=== PATIENT | female | born 1995 | race Caucasian/White ===

== ENCOUNTER 2023-10-29 17:18 | Observation (INO) ==
--- NOTE | 2023-10-29 17:37 | Emergency Department Note ---
Impression & Plan Cholecystitis, Abdominal pain, Leukocytosis, UTI (urinary tract infection) ED Provider Note NAME: DORYS ASCENCIO AGE: 28 SEX: F : 1995 ARRIVES VIA: Walk-In INFORMANT: Patient ED PROVIDER(S): Jean Claude Luna DO CHIEF COMPLAINT: abdominal pain HPI: Patient is a 28-year-old female who presents ER for epigastric abdominal pain which started earlier today. Associated with nausea but no vomiting. Started around 8-9 30. She notes it is worse with pushing. Does radiate to the upper quadrant. She did deliver 2 months ago and had a D&C performed that she had some retained products last Tuesday. Denies any other vaginal bleeding vaginal discharge. No dysuria, urgency, or frequency. No other exacerbating or remitting factors. Symptoms are worse with eating. No chest pain or shortness of breath. ADDITIONAL HISTORY OBTAINED: Per HPI Chronic Medical/Social Conditions Affecting Care: Per HPI PAST MEDICAL HISTORY:See Below PAST SURGICAL HISTORY:See Below FAMILY HISTORY:See Below SOCIAL HISTORY:See Below HOME MEDICATIONS:See Below ALLERGIES:See Below VITALS:See Below PHYSICAL EXAMINATION: GENERAL: Sitting up in bed, alert, well appearing, well nourished, no distress, non-toxic EYE EXAM: normal conjunctiva. PERRL and EOM's grossly intact. OROPHARYNX: no exudate, no erythema, lips, buccal mucosa, and tongue normal and mucous membranes are moist NECK: supple, no nuchal rigidity, no adenopathy, non-tender LUNGS: Clear to auscultation. Normal chest wall mechanics HEART: no murmurs, S1 normal and S2 normal ABDOMEN: abdomen soft, TTP in epigastric region, normo-active bowel sounds, no masses, no rebound or guarding. UPPER EXTREMITIES: upper extremities are grossly normal. LOWER EXTREMITIES: No pitting edema. NEURO EXAM: Normal sensorium, cranial nerves II-XII grossly intact, normal speech, no gross weakness of arms, no gross weakness of legs. MEDICAL DECISION MAKING: Patient is a 28-year-old female who presents ER for the above-stated complaint. IV was established blood work was obtained. Labs show leukocytosis of 13.7. No significant anemia. INR unremarkable. BMP along with LFTs bilirubin and lipase was unremarkable. UA does appear to be consistent with UTI with nitrates leuks and whites and bacteria although small amount of epithelials present. CT abdomen pelvis is consistent with acute cholecystitis. This was discussed with general surgery been who recommended admission to the hospitalist. I discussed the case with the hospitalist and they recommended admission to general surgery. Both services discussed the case and patient was admitted to general surgery. Patient was given morphine, Zosyn, Zofran and fluids. Consults/Care Managements Discussions: Per MDM Triage Nursing notes reviewed. Limited review of prior medical records performed Vital Signs: reviewed and remarkable for no significant abnormalities Differential diagnosis: Differential diagnoses includes but is not limited to gastritis, peptic ulcer disease, GERD, gallbladder disease, pancreatitis, small bowel obstruction, appendicitis, diverticulitis, hernia, urinary tract infection, torsion, /ectopic (if female), perforation, trauma, infectious. ER treatment provided: See below Diagnostics interpreted by me include EKG and cardiac monitoring as listed below: -Cardiac Monitoring: An order was placed for continuous cardiac monitoring. The monitor shows a rate of 80 with sinus rhythm. -ECG: none -Laboratory studies:Interpreted by me as stated above in MDM and shown below. Imaging studies: Xrays: As interpreted by me:none CTs show: CT abdomen pelvis per my preliminary interpretation showed no obvious bowel obstruction CT abdomen pelvis per radiology shows acute cholecystitis Procedures:none Critical Care: None Past Med/Surg History Problem List (Updated 10/29/23 @ 21:05 by Jean Claude Luna DO) UTI (urinary tract infection) (Acute) Leukocytosis (Acute) Abdominal pain (Acute) Cholecystitis (Acute) Social History Smoking Status: Never smoker Preferred Language: Vietnamese Feels Safe at Home: Yes Allergies Allergies Allergy/AdvReac Type Severity Reaction Status Date / Time adhesive Allergy Intermediate ITCHY HIVES Verified 10/29/23 18:12 latex Allergy Intermediate ITCHY HIVES Verified 10/29/23 18:12 Home Meds Home Medications Medication Instructions Recorded Confirmed cholecalciferol (vitamin D3) 25 0 mcg PO DAILY 10/29/23 10/29/23 mcg (1,000 unit) capsule (Vitamin D3) famotidine 20 mg tablet 20 mg PO DAILY 10/29/23 10/29/23 fenugreek seed 610 mg capsule 0 mg PO DAILY 10/29/23 10/29/23 vit no.95-ferrous 1 tab PO DAILY 10/29/23 10/29/23 fumarate 28 mg-folic acid 800 mcg tablet () Results & Data (ED) Vital Signs Vital Signs - 24 hr 10/29/23 17:23 10/29/23 18:26 10/29/23 18:26 Temperature 36.8 C Temperature Source Temporal Artery Scan Pulse Rate 79 Pulse Rate [Apical] 71 Respiratory Rate 19 13 Blood Pressure 144/86 H Blood Pressure [Right Arm] 140/88 Blood Pressure Mean 105 Blood Pressure Mean [Right Arm] 105 Pulse Oximetry 100 98 Oxygen Delivery Method Room Air Room Air Room Air Sepsis Recent Fever Within 48 Hours No Sepsis New/Unexplained Change in Mental Status N/A Sepsis Action Taken by Nursing No Action Required 10/29/23 18:29 10/29/23 18:57 10/29/23 20:00 Temperature Temperature Source Pulse Rate 74 Pulse Rate [Apical] 69 72 Respiratory Rate 12 16 Blood Pressure Blood Pressure [Right Arm] 137/90 122/84 Blood Pressure Mean Blood Pressure Mean [Right Arm] 105 96 Pulse Oximetry 99 98 Oxygen Delivery Method Room Air Room Air Sepsis Recent Fever Within 48 Hours Sepsis New/Unexplained Change in Mental Status Sepsis Action Taken by Nursing Laboratory Data 10/29/23 17:59 10/29/23 17:59 Lab Results 10/29/23 10/29/23 Range/Units 17:44 17:59 WBC 13.75 H (4.8-10.8) K/ul RBC 5.10 (4.20-5.40) M/uL Hgb 13.4 (12.0-16.0) g/dl Hct 39.7 (37.0-47.0) % MCV 77.8 L (80.0-100.0) fL MCH 26.3 (25.0-34.0) pg MCHC 33.8 (32.0-36.0) g/dL RDW Std Deviation 35.4 L (36.4-46.3) fL RDW Coeff of Tim 12.5 (11.5-14.5) % Plt Count 341 (130-400) K/uL MPV 10.2 (9.4-12.4) fL Immature Gran % (Auto) 0.4 % Neut % (Auto) 69.9 % Lymph % (Auto) 21.5 % [place] % (Auto) 6.5 % Eos % (Auto) 1.3 % Baso % (Auto) 0.4 % Neut # (Auto) 9.62 H (1.40-6.50) K/uL Lymph # (Auto) 2.95 (1.20-3.40) K/uL [place] # (Auto) 0.89 H (0.11-0.59) K/uL Eos # (Auto) 0.18 (0.00-0.50) K/uL Baso # (Auto) 0.06 (0.00-0.20) K/uL Immature Gran # (Auto) 0.05 (0.01-0.20) K/uL PT 10.2 (9.0-12.0) Seconds INR 0.9 (0.9-1.1) Sodium 139 (136-145) mmol/L Potassium 4.0 (3.5-5.1) mmol/L Chloride 106 (98-107) mmol/L Carbon Dioxide 25 (21-32) mmol/L Anion Gap 8 (3-11) BUN 21 (6-23) mg/dl Creatinine 0.93 (0.6-1.2) mg/dl Est Cr Clr Drug Dosing 102.2 ml/min Est GFR ( Amer) 96.3 ml/min Est GFR (Non-Af Amer) 83.1 ml/min BUN/Creatinine Ratio 22.6 H (10-20) Glucose 83 (70-99(Fasting)) mg/dl Calcium 9.8 (8.6-10.3) mg/dl Total Bilirubin 0.4 (0.2-1.0) mg/dl AST 24 (13-39) U/L ALT 36 (7-52) U/L Alkaline Phosphatase 117 H (34-104) U/L Total Protein 7.4 (6.0-8.3) gm/dl Albumin 4.6 (3.4-5.0) gm/dl Globulin 2.8 (2.5-4.0) gm/dl Albumin/Globulin Ratio 1.6 (0.9-2) Lipase 47 (11-82) U/L Urine Color Yellow Urine Appearance Cloudy A (Clear) Urine pH 6.0 (4.5-7.5) Ur Specific [place] 1.019 (1.000-1.030) Urine Protein Negative (Negative) Urine Glucose (UA) Negative (Negative) Urine Ketones Negative (Negative) Urine Blood Negative (Negative) Urine Nitrite Positive A (Negative) Urine Bilirubin Negative (Negative) Urine Urobilinogen Negative (Negative) Ur Leukocyte Esterase 2+ H (Negative) Urine WBC (Auto) 11-20 H (0-5) /hpf Urine RBC (Auto) 0-2 (0-2) /hpf U Hyaline Cast (Auto) 0-2 (0-2) /lpf U Epithel Cells (Auto) 3-5 H (0-2) /hpf Urine Bacteria (Auto) 4+ H (None Seen) Administered Medications Sodium Chloride (Nss) 1,000 mls @ 100 mls/hr IV .Q10H JOSE RAMON Stop: 11/28/23 19:44 Last Admin: 10/29/23 20:10 Dose: 100 mls/hr Documented By: MECHELLE Discontinued Medications Al Hydrox/Mg Hydrox/Simethicone (Aluminum/Magnesium Susp 30 Ml Udc) 30 ml PO NOW STA Stop: 10/29/23 17:35 Last Admin: 10/29/23 17:48 Dose: 30 ml Documented By: LAWRENCE Piperacillin Sod/Tazobactam Sod (Zosyn) 4.5 gm in 100 mls @ 200 mls/hr IV NOW ONE Stop: 10/29/23 19:31 Last Infusion: 10/29/23 19:59 Dose: Infused Documented By: Admin: 10/29/23 19:26 Dose: 200 mls/hr Documented By: MECHELLE Ioversol (Optiray 320 100ml) 88 ml IV ONCE ONE Stop: 10/29/23 18:18 Last Admin: 10/29/23 18:17 Dose: 88 ml Documented By: ARMANDO Morphine Sulfate (Morphine Sulfate 4 Mg/Ml 1 Ml Carp\\Vial) 4 mg IV NOW STA Stop: 10/29/23 19:03 Last Admin: 10/29/23 19:14 Dose: Not Given Documented By: MECHELLE Ondansetron HCl (Ondansetron Inj 2 Mg/Ml 2 Ml Vial) 4 mg IV NOW STA Stop: 10/29/23 17:35 Last Admin: 10/29/23 17:48 Dose: 4 mg Documented By: LAWRENCE Imaging Data Radiologist's Impression: Abdomen/Pelvis CT 10/29/23 17:[address] WITH IV CONTRAST CT DOSE: 1367.47 mGy.cm HISTORY: epigastric abd pain TECHNIQUE: Multiaxial CT images of the abdomen and pelvis were performed following the use of intravenous contrast. A dose lowering technique was utilized adhering to the principles of ALARA. COMPARISON STUDY: None. FINDINGS: The lung bases are clear. No pneumoperitoneum. No pneumatosis. No acute fractures identified. The liver, spleen, adrenal glands, and pancreas are unremarkable. The main portal vein is patent. Normal caliber abdominal aorta. No retroperitoneal lymphadenopathy. The kidneys enhance normally. There are few punctate bilateral renal calculi. No ureteral calculi. No hydronephrosis. The gallbladder is mildly distended and contains a few punctate gallstones. There is a small amount of pericholecystic fluid. Therefore, these findings are suspicious for an acute cholecystitis. Normal caliber common bile duct. The bladder, uterus, and ovaries are unremarkable. No pelvic free fluid. No pelvic lymphadenopathy. No bowel wall thickening or obstruction. Normal appendix. IMPRESSION: 1. The gallbladder is mildly distended and contains a few punctate gallstones. There is a small amount of pericholecystic fluid. Therefore, these findings are suspicious for an acute cholecystitis. Underlying hepatocellular disease could also result in this appearance. Surgical consultation recommended. 2. No bowel wall thickening or obstruction. 3. Normal appendix. 4. Bilateral nephrolithiasis. No ureteral stones. No hydronephrosis. ACT 112: Negative or not required by law. Electronically signed by: Tj Dickinson M.D. 10/29/2023 6:53 PM Discharge Plan Visit Data Chief Complaint: Abdominal Pain Stated Complaint: SHARP ABD PAIN ED Provider: Jean Claude Luna Discharge Problem: Cholecystitis, Abdominal pain, Leukocytosis, UTI (urinary tract infection) Discharge Instructions Interventions: ED Discharge Assessment Last Done: 10/29/23 20:48 Forms Stand Alone Forms: My CoNarrative Prescriptions Prescriptions: No Action famotidine 20 mg Tablet 20 mg PO DAILY cholecalciferol (vitamin D3) [Vitamin D3] 25 mcg (1,000 unit) Capsule 0 mcg PO DAILY Rx Instructions: PT UNSURE OF STRENGTH PNV cmb#95-ferrous fumarate-FA [] 28 mg iron- 800 mcg Tablet 1 tab PO DAILY fenugreek seed 610 mg Capsule 0 mg PO DAILY Rx Instructions: PER PT "DAILY DOSE PER PKG". PT UNSURE OF STRENGTH Referrals Referrals: PCP,NO [Primary Care Provider] - Discharge Problem: Abdominal pain Qualifiers: Abdominal location: unspecified location Qualified Code(s): R10.9 - Unspecified abdominal pain Leukocytosis Qualifiers: Leukocytosis type: unspecified Qualified Code(s): D72.829 - Elevated white blood cell count, unspecified UTI (urinary tract infection) Qualifiers: Urinary tract infection type: acute cystitis Hematuria presence: with hematuria Qualified Code(s): N30.01 - Acute cystitis with hematuria
[2023-10-29] MEDS: ONDANSETRON INJ 2 MG/ML 2 ML VIAL IV STA (17:48)
[2023-10-29] MEDS: ALUMINUM/MAGNESIUM SUSP 30 ML UDC PO STA (17:48)
[2023-10-29 18:04] LABS: Appearance Urine Cloudy (Clear); Bacteria Urine Automated 4+ (None Seen); Bilirubin Urine Negative (Negative); Blood Urine Negative (Negative); Cast Urine Automated 0-2 /lpf (0-2); Color Urine Yellow; Glucose Urine UA Negative (Negative); Ketones Urine Negative (Negative); Leukocyte Esterase Urine 2+ (Negative); Nitrite Urine Positive (Negative); Protein Urine Negative (Negative); RBC Urine Automated 0-2 /hpf (0-2); Specific Gravity Urine 1.019 (1.000-1.030); Urobilinogen Urine Negative (Negative)
[2023-10-29] MEDS: OPTIRAY 320 100ml IV ONE (18:17)
[2023-10-29 18:29] LABS: Basophils # (auto) 0.06 K/uL (0.00-0.20); Basophils % (auto) 0.4 %; Eosinophils # (auto) 0.18 K/uL (0.00-0.50); Eosinophils % (auto) 1.3 %; Hematocrit (blood only) 39.7 % (37.0-47.0); Hemoglobin 13.4 g/dl (12.0-16.0); Immature Granulocytes # (auto) 0.05 K/uL (0.01-0.20); Immature Granulocytes % (auto) 0.4 %; Lymphocytes # (auto) 2.95 K/uL (1.20-3.40); Lymphocytes % (auto) 21.5 %; Mean Corpuscular Hemoglobin 26.3 pg (25.0-34.0); Mean Corpuscular Hgb Conc 33.8 g/dL (32.0-36.0); Mean Corpuscular Volume 77.8 fL (80.0-100.0); Mean Platelet Volume 10.2 fL (9.4-12.4); Monocytes # (auto) 0.89 K/uL (0.11-0.59); Monocytes % (auto) 6.5 %; Neutrophils # (auto) 9.62 K/uL (1.40-6.50); Neutrophils % (auto) 69.9 %; Platelet Count 341 K/uL (130-400); RDW Coefficient of Variation 12.5 % (11.5-14.5); RDW Standard Deviation 35.4 fL (36.4-46.3); White Blood Count 13.75 K/ul (4.8-10.8)
[2023-10-29 18:35] LABS: Albumin Globulin Ratio 1.6 (0.9-2); Albumin Level 4.6 gm/dl (3.4-5.0); BUN Creatinine Ratio 22.6 (10-20); Bilirubin,Total 0.4 mg/dl (0.2-1.0); Calcium 9.8 mg/dl (8.6-10.3); Creatinine Clr Calc Pharmacy 102.2 ml/min; Est GFR (African American) 96.3 ml/min; Est GFR (Non-African American) 83.1 ml/min; Globulin 2.8 gm/dl (2.5-4.0); Total Protein 7.4 gm/dl (6.0-8.3)
[2023-10-29 18:48] LABS: INR 0.9 (0.9-1.1); Prothrombin Time 10.2 Seconds (9.0-12.0)
--- NOTE | 2023-10-29 18:55 | CT Scan Report ---
ABDOMEN AND PELVIS CT WITH IV CONTRAST CT DOSE: 1367.47 mGy.cm HISTORY: epigastric abd pain TECHNIQUE: Multiaxial CT images of the abdomen and pelvis were performed following the use of intrave nous contrast. A dose lowering technique was utilized adhering to the principles of ALARA. COMPARISON STUDY: None. FINDINGS: The lung bases are clear. No pneumoperitoneum. No pneumatosis. No acute fractures identifie d. The liver, spleen, adrenal glands, and pancreas are unremarkable. The main portal vein is patent. Normal caliber abdominal aorta. No retroperitoneal lymphadenopathy. The kidneys enhance normally. The re are few punctate bilateral renal calculi. No ureteral calculi. No hydronephrosis. The gallbladder is mildly distended and contains a few punctate gallstones. There is a small amount of pericholecysti c fluid. Therefore, these findings are suspicious for an acute cholecystitis. Normal caliber common b ile duct. The bladder, uterus, and ovaries are unremarkable. No pelvic free fluid. No pelvic lymphade nopathy. No bowel wall thickening or obstruction. Normal appendix. IMPRESSION: 1. The gallbladder is mildly distended and contains a few punctate gallstones. There is a small amoun t of pericholecystic fluid. Therefore, these findings are suspicious for an acute cholecystitis. Unde rlying hepatocellular disease could also result in this appearance. Surgical consultation recommended . 2. No bowel wall thickening or obstruction. 3. Normal appendix. 4. Bilateral nephrolithiasis. No ureteral stones. No hydronephrosis. ACT 112: Negative or not required by law. Electronically signed by: Tj Dickinson M.D. 10/29/2023 6:53 PM
[2023-10-29] MEDS: MoRPHine SULFATE 4 MG/ML 1 ML CARP\\VIAL IV STA (19:14)
[2023-10-29] MEDS: PIPERACILLIN/TAZOBACTAM 4.5 GM/100 ML BAG IV ONE (19:26)
[2023-10-29] MEDS ORDERED: ACETAMINOPHEN 1,000 MG/100 ML VIAL IV PRN (19:37)
[2023-10-29] MEDS ORDERED: ONDANSETRON INJ 2 MG/ML 2 ML VIAL IV PRN (19:37)
[2023-10-29] MEDS ORDERED: MoRPHine SULFATE 4 MG/ML 1 ML CARP\\VIAL IV PRN (19:37)
--- NOTE | 2023-10-29 19:37 | Surgery Consultation ---
Date of Consultation October 29, 2023 Assessment & Plan (1) Cholecystitis: Due to the patient's clinical presentation and findings on imaging she will be admitted to the hospital proceeding as follows: Analgesia will be provided Antiemetics to be provided She will be hydrated with IV fluids I feel it is safer the patient have clear liquids tonight but she will be made n.p.o. after midnight tonight Antibiotics in form of Zosyn have been ordered by the treating emergency room physician. We will continue this antibiotic We will get a formal gallbladder ultrasound for better delineation of the biliary anatomy Will repeat labs in the morning It appears as though the patient has an underlying urinary tract infection. The selected antibiotics for her biliary pathology will cover but the most likely cause of urinary tract infection. A urine culture has been sent and can be followed with antibiotics tailored based on these results. We will tentatively plan on having the patient scheduled for a cholecystectomy with Dr. Penn on 10/30/2023 pending availability of the OR time. Additional recommendations be forthcoming based on her clinical course as it unfolds Will use SCDs only for DVT prevention, no chemical means due to anticipated surgery She will be a level 1 full code Supervising Physician Co-Signing Physician Notes pnt d/w Brett Palacio, labs and imaging reviewed, agree w/ above. cholelithiasis w/ likely early acute cholecystitis. Recommend US, plan for lap edward in am. History of Present Illness Reason for Consultation: Cholecystitis History of Present Illness This is a 28-year-old female who presented to the emergency department secondary to abdominal pain. Patient notes that she has been suffering with from gastroesophageal reflux disease for several years and gets reflux type discomfort in a predictable fashion. She notes that she drank a milkshake this morning and developed severe epigastric and right upper quadrant pain this morning. She had nausea without vomiting. She did not have any fevers, shakes, or chills. As the symptoms were not typical of her usual GERD type symptoms she presented to the emergency department. She does note that she is 2 months . She notes that she has not ever had any prior abdominal surgeries. Since arrival to the hospital the patient has had labs and imaging which I independently reviewed. CT scan of the abdomen pelvis was performed that showed the patient had a mildly distended gallbladder containing a few punctate gallstones. There is a small amount of pericholecystic fluid which was suspicious for acute cholecystitis. The common bile duct was noted to be of normal caliber. CBC revealed white blood cell count had a slight elevation at 13.7. Hemoglobin and hematocrit along with the platelet count were normal. Coagulation studies were normal. Chemistry profile showed sodium and potassium as well as the BUN and creatinine were normal. The patient had a slight elevation of her alkaline phosphatase at 117. There is no elevation of the remainder of her LFTs or lipase. Urinalysis was concerning for infection as it was positive for nitrites and showed 11-12 white blood cells per high-power field, 2+ leukocyte Estrace, and 4+ bacteria. At the time of my interview she was resting comfortably in bed and she was in no distress. Concerning past medical history the patient denies other medical problems other than gastroesophageal reflux disease Concerning past surgical history the patient has had a D&C due to retained placental products following the a for mentioned delivery of her child noted above Concerning social history she does not smoke Concerning family history her mother suffered from gallbladder disease Allergies Allergy/AdvReac Type Severity Reaction Status Date / Time adhesive Allergy Intermediate ITCHY HIVES Verified 10/29/23 18:12 latex Allergy Intermediate ITCHY HIVES Verified 10/29/23 18:12 Home Medications Medication Instructions Recorded Confirmed Type cholecalciferol (vitamin D3) 25 0 mcg PO DAILY 10/29/23 10/29/23 History mcg (1,000 unit) capsule (Vitamin D3) famotidine 20 mg tablet 20 mg PO DAILY 10/29/23 10/29/23 History fenugreek seed 610 mg capsule 0 mg PO DAILY 10/29/23 10/29/23 History vit no.95-ferrous 1 tab PO DAILY 10/29/23 10/29/23 History fumarate 28 mg-folic acid 800 mcg tablet () Patient History Social History Smoking Status: Never smoker Preferred Language: Moroccan Feels Safe at Home: Yes Review of Systems Review of Systems: All systems reviewed & are unremarkable except as noted in HPI & below Physical Exam Constitutional: WD/WN, vitals as above Eyes: + anicteric sclerae Wears glasses ENMT: Ears: no hearing impairment and no external ear abnormality Sublingual jaundice is absent Neck: trachea midline Respiratory: normal respiratory effort; no respiratory distress and no labored breathing Cardiovascular: Rate/Rhythm: regular rate and regular rhythm Gastrointestinal (Abdomen): Abdomen is soft and nonrigid. It is nondistended. Patient had pain with palpation in the epigastric area as well as the right upper quadrant Musculoskeletal: No calf tenderness Skin: no jaundice Neurologic: moves all extremities Psychiatric: A+Ox3, euthymic affect Results & Data Vital Signs (Past 12 Hours) Vital Signs Temp Pulse Pulse Resp BP BP Pulse Ox 10/29/23 18:57 69 12 137/90 99 10/29/23 18:29 74 10/29/23 18:26 10/29/23 18:26 71 13 140/88 98 10/29/23 17:23 36.8 C 79 19 144/86 H 100 O2 Del Method 10/29/23 18:57 Room Air 10/29/23 18:29 10/29/23 18:26 Room Air 10/29/23 18:26 Room Air 10/29/23 17:23 Room Air PG Care Time/CCT Total # of Minutes Spent Total Time Spent with Patient: Total time spent is greater than 50% in coordination of care (as documented) at patient's floor/unit and/or counseling patient: Coding Level of Care Code 84909 IN/OBS CONSULT LVL 5,80M Diagnoses Cholecystitis K81.9
[2023-10-29] MEDS: SODIUM CHLORIDE 0.9% 1,000 ML IV SCH (20:10)
[2023-10-29] MEDS: PIPERACILLIN/TAZOBACTAM 4.5 GM in DEXTROSE 5% MINI-B 100 ML IV SCH (23:19)
--- NOTE | 2023-10-30 00:11 | Ultrasound Report ---
Exam(s): US GALLBLADDER EXAM: US Abdomen Limited, Gallbladder CLINICAL HISTORY: Reason for exam: cholecystitis. TECHNIQUE: Real-time ultrasound of the right upper quadrant with image documentation. COMPARISON: None. FINDINGS: Limitations: Exam is limited due to gas artifact in the bowel . Liver: The liver measures 15.4 cm. Gallbladder: Multiple small gallstones. Small amount of free fluid surrounding the gallbladder. The gallbladder wall measures 4.2 mm. Saenz sign is indeterminate due to administration prior medication. Common bile duct: The common bile that measures three-point mm. No stones. No dilation. Pancreas: Obscuration of the tail of the pancreas otherwise normal pancreas. Right kidney: The right kidney measures 11.4 cm, unremarkable. IMPRESSION: 1. Fluid surrounding the gallbladder with thickening of the wall and multiple gallstones raising the concern for acute cholecystitis. If indicated, this can be confirmed with HIDA scan. 2. The remainder of the right upper quadrant ultrasound unremarkable. Electronically signed by: Fatou Arrington MD 10/30/23 00:10 AM
[2023-10-30 06:26] LABS: Albumin Globulin Ratio 1.5 (0.9-2); Albumin Level 3.7 gm/dl (3.4-5.0); BUN Creatinine Ratio 16.1 (10-20); Bilirubin,Total 0.6 mg/dl (0.2-1.0); Calcium 8.1 mg/dl (8.6-10.3); Creatinine Clr Calc Pharmacy 108.5 ml/min; Est GFR (African American) 104.3 ml/min; Globulin 2.5 gm/dl (2.5-4.0); Potassium 3.9 mmol/L (3.5-5.1); Total Protein 6.2 gm/dl (6.0-8.3)
[2023-10-30 06:28] LABS: Basophils # (auto) 0.05 K/uL (0.00-0.20); Basophils % (auto) 0.7 %; Eosinophils # (auto) 0.23 K/uL (0.00-0.50); Eosinophils % (auto) 3.1 %; Hematocrit (blood only) 36.4 % (37.0-47.0); Hemoglobin 12.3 g/dl (12.0-16.0); Immature Granulocytes # (auto) 0.02 K/uL (0.01-0.20); Immature Granulocytes % (auto) 0.3 %; Lymphocytes # (auto) 2.82 K/uL (1.20-3.40); Lymphocytes % (auto) 38.2 %; Mean Corpuscular Hemoglobin 26.2 pg (25.0-34.0); Mean Corpuscular Hgb Conc 33.8 g/dL (32.0-36.0); Mean Corpuscular Volume 77.6 fL (80.0-100.0); Mean Platelet Volume 10.3 fL (9.4-12.4); Monocytes # (auto) 0.71 K/uL (0.11-0.59); Monocytes % (auto) 9.6 %; Neutrophils # (auto) 3.56 K/uL (1.40-6.50); Neutrophils % (auto) 48.1 %; Platelet Count 276 K/uL (130-400); RDW Coefficient of Variation 12.4 % (11.5-14.5); RDW Standard Deviation 34.7 fL (36.4-46.3); Red Blood Count 4.69 M/uL (4.20-5.40); White Blood Count 7.39 K/ul (4.8-10.8)
--- NOTE | 2023-10-30 07:16 | Anesthesiology Consultation ---
Date of Service October 30, 2023 Assessment & Plan (1) Encounter for pre-operative examination: Chart Review Chart Review: Acceptable Risk for Surgery History Surgery Operation Date: 10/30/23 07:00 Proposed Procedures p Laparoscopic Cholecystectomy - Femi Penn DO, FACS Height/Weight Height: 5 ft 6 in Weight: 91.172 kg Allergies Allergy/AdvReac Type Severity Reaction Status Date / Time adhesive Allergy Intermediate ITCHY HIVES Verified 10/29/23 18:12 latex Allergy Intermediate ITCHY HIVES Verified 10/29/23 18:12 Medications Home Medications Medication Instructions Recorded Confirmed Last Taken cholecalciferol (vitamin D3) 25 0 mcg PO DAILY 10/29/23 10/29/23 10/29/23 mcg (1,000 unit) capsule (Vitamin D3) famotidine 20 mg tablet 20 mg PO DAILY 10/29/23 10/29/23 10/29/23 fenugreek seed 610 mg capsule 0 mg PO DAILY 10/29/23 10/29/23 10/29/23 vit no.95-ferrous 1 tab PO DAILY 10/29/23 10/29/23 10/29/23 fumarate 28 mg-folic acid 800 mcg tablet () Active Medications Generic Name Dose Route Start Last Admin Trade Name Freq PRN Reason Stop Dose Admin Sodium Chloride 1,000 mls @ 100 mls/hr 10/29/23 19:45 10/29/23 23:20 Nss IV 11/28/23 19:44 100 mls/hr .Q10H JOSE RAMON Infusion Piperacillin Sod/Tazobactam 100 mls @ 25 mls/hr 10/30/23 00:00 10/30/23 02:51 Sod 4.5 gm/ Dextrose IV 11/09/23 00:00 Infused Q8H JOSE RAMON Infusion Protocol Past Medical History Medical History (Updated 10/30/23 @ 07:16 by Gilmer Zimmer MD) Cholecystitis Past Surgical History Surgical History (Updated 10/30/23 @ 07:15 by Gilmer Zimmer MD) Hx of dilation and curettage Social History Smoking Status: Never smoker Do You Dip or Chew Tobacco: No Hx Alcohol Use: No Hx Substance Use: No substance use type: does not use Physical Exam Vital Signs Last Vital Signs Temp 36.7 C 10/29/23 20:30 Pulse 84 10/29/23 20:30 Resp 18 10/29/23 20:30 BP 122/83 10/29/23 20:30 Pulse Ox 99 10/29/23 20:30 O2 Del Method Room Air 10/29/23 20:30 Testing Laboratory Results 10/30/23 05:55 10/30/23 05:55 PT 10.2 Seconds (9.0-12.0) 10/29/23 17:59 INR 0.9 (0.9-1.1) 10/29/23 17:59 Urine Color Yellow 10/29/23 17:44 Urine Appearance Cloudy (Clear) A 10/29/23 17:44 Urine pH 6.0 (4.5-7.5) 10/29/23 17:44 Ur Specific [place] 1.019 (1.000-1.030) 10/29/23 17:44 Urine Protein Negative (Negative) 10/29/23 17:44 Urine Glucose (UA) Negative (Negative) 10/29/23 17:44 Urine Ketones Negative (Negative) 10/29/23 17:44 Urine Nitrite Positive (Negative) A 10/29/23 17:44 Ur Leukocyte Esterase 2+ (Negative) H 10/29/23 17:44 Urine WBC (Auto) 11-20 /hpf (0-5) H 10/29/23 17:44 Urine RBC (Auto) 0-2 /hpf (0-2) 10/29/23 17:44 U Hyaline Cast (Auto) 0-2 /lpf (0-2) 10/29/23 17:44 U Epithel Cells (Auto) 3-5 /hpf (0-2) H 10/29/23 17:44 Urine Bacteria (Auto) 4+ (None Seen) H 10/29/23 17:44 10/29/23 17:44 Urine Culture - Preliminary Urine,Clean Catch Gram negative bacilli
[2023-10-30] MEDS ORDERED: LIDOCAINE 2% 2 ML VIAL/AMP(20MG/ML) INFIL ONE (08:19)
[2023-10-30] MEDS ORDERED: ROCURONIUM BROMIDE 10 MG/ML 5 ML VIAL IV ONE (08:19)
[2023-10-30] MEDS ORDERED: MIDAZOLAM HCL 1 MG/ML 2ML VIAL ONE (08:19)
[2023-10-30] MEDS ORDERED: ONDANSETRON INJ 2 MG/ML 2 ML VIAL ONE (08:19)
[2023-10-30] MEDS ORDERED: PROPOFOL IV EMULSION 10 MG/ML 20 ML VIAL IV ONE (08:19)
[2023-10-30] MEDS ORDERED: fentaNYL citrate PF 100 MCG/2 ML VIAL ONE ×2 (08:19→10:44)
[2023-10-30] MEDS ORDERED: DEXAMETHASONE SOD INJ 4 MG/ML VIAL ONE (08:19)
[2023-10-30 09:03] LABS: Pregnancy Test, Urine Negative (Negative)
--- NOTE | 2023-10-30 09:06 | Surgery Progress Note ---
Date of Service October 30, 2023 Assessment & Plan (1) Cholecystitis: Plan: cholelithiasis w/ cholecystitis plan for laparoscopic cholecystectomy with possible cholangiogram risks discussed to include but not limited to bleeding, infection, retained stone, bile leak, open surgery, damage to surrounding structures including bile duct, need for future or more extensive surgery, failure to treat symptoms, and risks of anesthesia. likely discharge this afternoon wound care instructions, activity restrictions and return precautions given f/u in 2 weeks in general surgery clinic Admission and Anticipated Discharge Date Admission Date: October 29, 2023 Subjective admitted w/ cholelithiasis and cholecystitis. no changes since admission. Physical Exam Constitutional: WD/WN, vitals as above + obese Respiratory: normal respiratory effort, lungs clear to auscultation Cardiovascular: RRR, no murmur, no edema Gastrointestinal (Abdomen): Percussion/Palpation: + abdomen tender (RUQ and epigastric) and abdomen soft; no guarding and no hepatosplenomegaly Results & Data Vital Signs (Past 12 Hours) Vital Signs Temp Pulse Resp BP Pulse Ox O2 Del Method 10/30/23 07:16 36.8 C 70 16 116/68 98 Room Air Laboratory Results Laboratory Results - last 24 hr 10/29/23 10/29/23 10/30/23 17:44 17:59 05:55 WBC 13.75 H 7.39 RBC 5.10 4.69 Hgb 13.4 12.3 Hct 39.7 36.4 L MCV 77.8 L 77.6 L MCH 26.3 26.2 MCHC 33.8 33.8 RDW Std Deviation 35.4 L 34.7 L RDW Coeff of Tim 12.5 12.4 Plt Count 341 276 MPV 10.2 10.3 Immature Gran % (Auto) 0.4 0.3 Neut % (Auto) 69.9 48.1 Lymph % (Auto) 21.5 38.2 [place] % (Auto) 6.5 9.6 Eos % (Auto) 1.3 3.1 Baso % (Auto) 0.4 0.7 Neut # (Auto) 9.62 H 3.56 Lymph # (Auto) 2.95 2.82 [place] # (Auto) 0.89 H 0.71 H Eos # (Auto) 0.18 0.23 Baso # (Auto) 0.06 0.05 Immature Gran # (Auto) 0.05 0.02 PT 10.2 INR 0.9 Sodium 139 139 Potassium 4.0 3.9 Chloride 106 108 H Carbon Dioxide 25 25 Anion Gap 8 6 BUN 21 14 Creatinine 0.93 0.87 Est Cr Clr Drug Dosing 102.2 108.5 Est GFR ( Amer) 96.3 104.3 Est GFR (Non-Af Amer) 83.1 90.0 BUN/Creatinine Ratio 22.6 H 16.1 Glucose 83 83 Calcium 9.8 8.1 L Total Bilirubin 0.4 0.6 AST 24 23 ALT 36 31 Alkaline Phosphatase 117 H 89 Total Protein 7.4 6.2 Albumin 4.6 3.7 Globulin 2.8 2.5 Albumin/Globulin Ratio 1.6 1.5 Lipase 47 27 Urine Color Yellow Urine Appearance Cloudy A Urine pH 6.0 Ur Specific [place] 1.019 Urine Protein Negative Urine Glucose (UA) Negative Urine Ketones Negative Urine Blood Negative Urine Nitrite Positive A Urine Bilirubin Negative Urine Urobilinogen Negative Ur Leukocyte Esterase 2+ H Urine WBC (Auto) 11-20 H Urine RBC (Auto) 0-2 U Hyaline Cast (Auto) 0-2 U Epithel Cells (Auto) 3-5 H Urine Bacteria (Auto) 4+ H Urine Test 10/30/23 Unknown WBC RBC Hgb Hct MCV MCH MCHC RDW Std Deviation RDW Coeff of Tim Plt Count MPV Immature Gran % (Auto) Neut % (Auto) Lymph % (Auto) [place] % (Auto) Eos % (Auto) Baso % (Auto) Neut # (Auto) Lymph # (Auto) [place] # (Auto) Eos # (Auto) Baso # (Auto) Immature Gran # (Auto) PT INR Sodium Potassium Chloride Carbon Dioxide Anion Gap BUN Creatinine Est Cr Clr Drug Dosing Est GFR ( Amer) Est GFR (Non-Af Amer) BUN/Creatinine Ratio Glucose Calcium Total Bilirubin AST ALT Alkaline Phosphatase Total Protein Albumin Globulin Albumin/Globulin Ratio Lipase Urine Color Urine Appearance Urine pH Ur Specific [place] Urine Protein Urine Glucose (UA) Urine Ketones Urine Blood Urine Nitrite Urine Bilirubin Urine Urobilinogen Ur Leukocyte Esterase Urine WBC (Auto) Urine RBC (Auto) U Hyaline Cast (Auto) U Epithel Cells (Auto) Urine Bacteria (Auto) Urine Test Negative Diagnostic Findings Abdomen/Pelvis CT 10/29/23 17:[address] WITH IV CONTRAST CT DOSE: 1367.47 mGy.cm HISTORY: epigastric abd pain TECHNIQUE: Multiaxial CT images of the abdomen and pelvis were performed following the use of intravenous contrast. A dose lowering technique was utilized adhering to the principles of ALARA. COMPARISON STUDY: None. FINDINGS: The lung bases are clear. No pneumoperitoneum. No pneumatosis. No acute fractures identified. The liver, spleen, adrenal glands, and pancreas are unremarkable. The main portal vein is patent. Normal caliber abdominal aorta. No retroperitoneal lymphadenopathy. The kidneys enhance normally. There are few punctate bilateral renal calculi. No ureteral calculi. No hydronephrosis. The gallbladder is mildly distended and contains a few punctate gallstones. There is a small amount of pericholecystic fluid. Therefore, these findings are suspicious for an acute cholecystitis. Normal caliber common bile duct. The bladder, uterus, and ovaries are unremarkable. No pelvic free fluid. No pelvic lymphadenopathy. No bowel wall thickening or obstruction. Normal appendix. IMPRESSION: 1. The gallbladder is mildly distended and contains a few punctate gallstones. There is a small amount of pericholecystic fluid. Therefore, these findings are suspicious for an acute cholecystitis. Underlying hepatocellular disease could also result in this appearance. Surgical consultation recommended. 2. No bowel wall thickening or obstruction. 3. Normal appendix. 4. Bilateral nephrolithiasis. No ureteral stones. No hydronephrosis. ACT 112: Negative or not required by law. Electronically signed by: Tj Dickinson M.D. 10/29/2023 6:53 PM Gallbladder Ultrasound 10/29/23 19:31 Exam(s): US GALLBLADDER EXAM: US Abdomen Limited, Gallbladder CLINICAL HISTORY: Reason for exam: cholecystitis. TECHNIQUE: Real-time ultrasound of the right upper quadrant with image documentation. COMPARISON: None. FINDINGS: Limitations: Exam is limited due to gas artifact in the bowel . Liver: The liver measures 15.4 cm. Gallbladder: Multiple small gallstones. Small amount of free fluid surrounding the gallbladder. The gallbladder wall measures 4.2 mm. Saenz sign is indeterminate due to administration prior medication. Common bile duct: The common bile that measures three-point mm. No stones. No dilation. Pancreas: Obscuration of the tail of the pancreas otherwise normal pancreas. Right kidney: The right kidney measures 11.4 cm, unremarkable. IMPRESSION: 1. Fluid surrounding the gallbladder with thickening of the wall and multiple gallstones raising the concern for acute cholecystitis. If indicated, this can be confirmed with HIDA scan. 2. The remainder of the right upper quadrant ultrasound unremarkable. Electronically signed by: Fatou Arrington MD 10/30/23 00:10 AM PG Care Time/CCT Total # of Minutes Spent Total Time Spent with Patient: Total time spent is greater than 50% in coordination of care (as documented) at patient's floor/unit and/or counseling patient: Coding Level of Care Code 97983 SUB INP/OBS CARE 2/35MIN Diagnoses Cholecystitis K81.9
[2023-10-30] MEDS ORDERED: ATROPINE SULFATE 0.1 MG/ML 10ML SYR IV PRN (09:26)
[2023-10-30] MEDS ORDERED: DROPERIDOL 5 MG/2 ML VIAL IV PRN (09:26)
[2023-10-30] MEDS ORDERED: KETOROLAC 30 MG/ML VIAL IV PRN (09:26)
[2023-10-30] MEDS ORDERED: DROPERIDOL 5 MG/2 ML VIAL ONE (10:45)
[2023-10-30] MEDS ORDERED: NEOSTIGMINE METHYLSULFATE 1 MG/ML 10ML VIAL ONE (11:08)
[2023-10-30] MEDS ORDERED: GLYCOPYRROLATE 0.2 MG/ML VIAL ONE (11:08)
[2023-10-30] MEDS: BUPIVACAINE 0.5 % 5 MG/1 ML MPF 30ML VIAL ONE (11:10)
--- NOTE | 2023-10-30 11:13 | Operative Report ---
PG Post Operative Report Pre & Post Diagnosis Operation Date: 10/30/23 07:00 Pre-Op Diagnosis: Cholecystitis Post-Op Diagnosis: Cholecystitis I identified the patient and participated in the time-out.: Yes Procedure Operation Date: 10/30/23 07:00 Actual Procedures p Laparoscopic Cholecystectomy(Not Applicable) - Femi Penn DO, FACS Surgeon Femi Penn DO, FACS Wellness Nurse Rn None Estimated Blood Loss 5 Findings Consistent with Post-Op Diagnosis Acute on chronic cholecystitis, cystic duct and artery doubly clipped and divided, critical view of safety obtained Specimens Gallbladder Anesthesia Type General Complications none Disposition Accompanied Patient To Recovery: No Disposition: Recovery Room Indications 28-year-old female presented with signs symptoms of acute cholecystitis, plan for laparoscopic cholecystectomy. The risks of the procedure were discussed, all questions were answered, and the patient agreed to proceed with surgery as planned. Description of Procedure The patient was properly identified, consented, and taken to the operating room where she was placed in the supine position. General endotracheal anesthesia was induced. SCDs and a safety belt were placed. Preoperative antibiotics were administered. The patient's abdomen was prepped and draped in the standard sterile fashion. A surgical timeout was performed and all parties were in agreement that this was the correct patient and procedure to be performed and we continued as planned. An incision was made superior and to the left of the umbilicus overlying the rectus muscle and the Veress needle was inserted. Saline drop test confirmed entry into the peritoneum. The abdomen was insufflated with carbon dioxide which the patient tolerated without incident. The abdomen was then entered using the Optiview technique and a 5 mm trocar. The laparoscope was inserted and no damage from initial trocar or Veress needle placement was noted, no gross abnormalities were noted within the 4 quadrants of the abdomen. An 11 mm port was placed in the subxiphoid position and two 5 mm ports were then placed in the right subcostal position. The patient was placed in reverse Trendelenburg position and rotated towards the left. Gallbladder was acutely and chronically inflamed. Omental adhesions were taken down with blunt dissection. The dome of the gallbladder was retracted towards the left upper quadrant and the infundibulum was retracted toward the right lower quadrant revealing Calot's triangle. Peritoneal attachments were taken down with electrocautery and blunt dissection. The cystic duct and artery were circumferentially dissected. A window of safety was obtained showing the cystic duct entering the gallbladder with no aberrant structures noted. The cystic duct and artery were doubly clipped and divided. The gallbladder was then lifted off the gallbladder fossa with electrocautery. The gallbladder was placed in an Endo Catch bag and removed through the subxiphoid port site. The right upper quadrant was irrigated and hemostasis was found to be good. 5 mm trochars were removed under direct visualization and the abdomen was allowed to collapse. The subxiphoid port site fascia was closed with 0 Vicryl suture utilizing the Brodie-Jen device prior to removal of the port. The wound was irrigated, and the skin of all ports was closed with 4-0 Monocryl subcuticular sutures. Dermabond was placed over the wounds. The patient was extubated in the operating room and taken to the PACU where she recovered without apparent incident. All sponge, instrument and needle counts were correct at the conclusion of the procedure. The patient tolerated the procedure well. I attest to the content of the Intraoperative Record and any orders documented therein. Any exceptions are noted below.
[2023-10-30] MEDS: fentaNYL citrate PF 100 MCG/2 ML VIAL IV PRN (11:45)
--- NOTE | 2023-10-30 12:13 | Anesthesiology Progress Note ---
Date of Service October 30, 2023 Anesthesia Post Procedure Vital Signs Vital Signs: Temp Pulse Pulse Pulse Resp BP BP 10/30/23 12:04 36.6 C 67 12 122/66 10/30/23 11:55 62 16 127/71 10/30/23 11:45 63 14 133/71 10/30/23 11:35 68 13 135/75 10/30/23 11:25 36.2 C L 81 12 132/84 10/30/23 07:16 36.8 C 70 16 116/68 10/29/23 20:30 10/29/23 20:30 36.7 C 84 18 122/83 10/29/23 20:00 72 16 122/84 10/29/23 18:57 69 12 137/90 10/29/23 18:29 74 10/29/23 18:26 10/29/23 18:26 71 13 140/88 10/29/23 17:23 36.8 C 79 19 144/86 H Pulse Ox O2 Del Method O2 Flow Rate 10/30/23 12:04 95 Room Air 10/30/23 11:55 96 Oxymask 4 10/30/23 11:45 98 Oxymask 6 10/30/23 11:35 98 Oxymask 8 10/30/23 11:25 94 Oxymask 10 10/30/23 07:16 98 Room Air 10/29/23 20:30 Room Air 10/29/23 20:30 99 Room Air 10/29/23 20:00 98 Room Air 10/29/23 18:57 99 Room Air 10/29/23 18:29 10/29/23 18:26 Room Air 10/29/23 18:26 98 Room Air 10/29/23 17:23 100 Room Air Pain Intensity Abdomen: Pain Intensity: 4 Transfer of Care Handoff Completed per policy Notes Mental Status: alert / awake / arousable Patient Amnestic to Procedure: Yes Nausea / Vomiting: adequately controlled Pain: adequately controlled Airway Patency, RR, SpO2: stable & adequate BP & HR: stable & adequate Hydration State: stable & adequate Anesthetic Complications: no major complications apparent
[2023-10-30] MEDS ORDERED: KETOROLAC TROMETHAMINE 15 MG/ML VIAL IV PRN (12:43)
[2023-10-30] MEDS ORDERED: oxyCODONE HCL IR 5 MG TAB (IMMEDIATE RELEASE) PO PRN ×2 (12:43)
[2023-10-30] MEDS: LACTATED RINGER'S 1,000 ML IV SCH (13:11)
[2023-10-30] MEDS: FAMOTIDINE 20 MG TAB PO SCH (14:54)
== END 2023-10-30 17:50 | disposition home or self-care (01) ==
LOC: ED 17:18 → 3N 19:39 → INTOOBSV 19:39 → 3N 20:48